=== PATIENT | female | born 1945 | race African-American/Black ===

== ENCOUNTER 2022-04-04 11:53 | Emergency (ER) | payer OTHER ==
[2022-04-04 12:09] VITALS: BMI 29.2
[2022-04-04 13:35] LABS: BASO % 0.6 % (0-2.0); HEMATOCRIT 39.1 % (32.4-45.2); HEMOGLOBIN 12.5 GM/dL (10.7-15.3); MCH 27.3 pg (25.7-33.7); MCHC 32.1 g/dl (32.0-36.0); MEAN CELL VOLUME 85.1 fl (80-96); MEAN PLT VOLUME 8.7 fl (7.5-11.1); MONO % 7.1 % (3.8-10.2); NEUT % 57.3 % (42.8-82.8); PLATELET COUNT 369 10^3/uL (134-434); RBC 4.59 M/mm3 (3.60-5.2); RDW 14.4 % (11.6-15.6)
[2022-04-04 13:42] LABS: INR 1.06 (0.83-1.09); PROTHROMBIN TIME (PATIENT) 12.2 SEC (9.7-13.0)
[2022-04-04 13:45] LABS: ACTIVATED PTT 32.5 SECONDS (25.2-36.5)
[2022-04-04 13:54] LABS: ALBUMIN 4.1 g/dl (3.4-5.0); CALCIUM 9.6 mg/dL (8.5-10.1)
[2022-04-04 13:55] LABS: BLOOD UREA NITROGEN 19.7 mg/dL (7-18)
[2022-04-04 13:59] LABS: BILIRUBIN,TOTAL 0.4 mg/dL (0.2-1); TOT PROT 7.9 g/dl (6.4-8.2)
[2022-04-04 14:03] LABS: PH,URINE 6.5 (5.0-8.0); URINE APPEARANCE CLEAR; URINE BILIRUBIN NEGATIVE (NEGATIVE); URINE COLOR YELLOW; URINE GLUCOSE (UA) NEGATIVE (NEGATIVE); URINE KETONE NEGATIVE (NEGATIVE); URINE LEUK ESTERASE NEGATIVE (NEGATIVE); URINE NITRITE NEGATIVE (NEGATIVE); URINE PROTEIN TRACE (NEGATIVE); URINE UROBILINOGEN 0.2 mg/dL (0.2-1.0)
[2022-04-04 14:40] VITALS: BP 146/86; PULSE 77; RESP 16; TEMP 98.2
== END 2022-04-04 16:35 | disposition home or self-care (01) ==
LOC: JER 11:53
DX: R53.1 Weakness (principal); I44.0 Atrioventricular block, first degree
CPT/HCPCS: 0241U-QW; 36415; 70450-TC; 71045-TC-FY; 80053; 81003; 82962; 84484; 85025; 85610; 85730; 86850; 86900; 86901; 87086; 93005; 93010; 99285-25

== ENCOUNTER 2022-10-11 10:50 | Observation (INO) | payer OTHER ==
[2022-10-11 11:21] VITALS: TEMP 97.4; BMI 24.0
[2022-10-11 12:35] LABS: PH,URINE 6.5 (5.0-8.0); URINE APPEARANCE CLEAR; URINE BILIRUBIN NEGATIVE (NEGATIVE); URINE COLOR YELLOW; URINE GLUCOSE (UA) NEGATIVE (NEGATIVE); URINE KETONE NEGATIVE (NEGATIVE); URINE LEUK ESTERASE NEGATIVE (NEGATIVE); URINE NITRITE NEGATIVE (NEGATIVE); URINE PROTEIN TRACE (NEGATIVE); URINE UROBILINOGEN 0.2 mg/dL (0.2-1.0)
[2022-10-11 13:28] LABS: BASO % 0.6 % (0-2.0); EOS % 2.4 % (0-4.5); HEMATOCRIT 37.3 % (32.4-45.2); HEMOGLOBIN 11.9 GM/dL (10.7-15.3); MCH 26.1 pg (25.7-33.7); MCHC 31.8 g/dl (32.0-36.0); MEAN CELL VOLUME 82.1 fl (80-96); MEAN PLT VOLUME 7.7 fl (7.5-11.1); MONO % 6.8 % (3.8-10.2); NEUT % 54.2 % (42.8-82.8); PLATELET COUNT 400 10^3/uL (134-434); RBC 4.55 M/mm3 (3.60-5.2); RDW 14.2 % (11.6-15.6); WHITE BLOOD COUNT 6.7 K/mm3 (4.0-10.0)
[2022-10-11 13:39] LABS: INR 1.05 (0.83-1.09); PROTHROMBIN TIME (PATIENT) 12.2 SEC (9.7-13.0)
[2022-10-11 13:44] LABS: ALBUMIN 3.9 g/dl (3.4-5.0); BLOOD UREA NITROGEN 19.1 mg/dL (7-18); CALCIUM 9.5 mg/dL (8.5-10.1)
[2022-10-11 13:47] LABS: CREATININE 0.7 mg/dL (0.55-1.3)
[2022-10-11 13:49] LABS: BILIRUBIN,TOTAL 0.4 mg/dL (0.2-1); TOT PROT 7.8 g/dl (6.4-8.2)
[2022-10-11] MEDS ORDERED: ASPIRIN 325 MG TABLET PO ONE (14:41)
[2022-10-11] MEDS ORDERED: ASPIRIN 325 MG TABLET ONE (14:45)
[2022-10-11] MEDS ORDERED: NICOTINE 7 MG/24 HOURS TOPICAL PATCH TD ONE ×2 (16:15→16:20)
[2022-10-11 17:31] VITALS: RESP 20
[2022-10-11 17:52] VITALS: BP 159/90; PULSE 100
== END 2022-10-11 17:54 | disposition home or self-care (01) ==
LOC: JER 10:50 → JERBED 16:13
PROVIDERS: ADMIT Internal Medicine; ATTEND Internal Medicine
DX: I24.9 Acute ischemic heart disease, unspecified (principal); I10 Essential (primary) hypertension; E11.9 Type 2 diabetes mellitus without complications; E78.5 Hyperlipidemia, unspecified; F17.210 Nicotine dependence, cigarettes, uncomplicated
CPT/HCPCS: 36415; 70450-TC; 71046-TC-FY; 80053; 81003; 83735; 84484; 85025; 85610; 87086; 93005; 93010; 99285-25; C9803-CS; G0378; U0003; U0005